=== PATIENT | male | born 1945 | race African-American/Black ===

== ENCOUNTER 2017-06-17 08:24 | Emergency (ER) | payer MEDICARE ==
--- NOTE | 2017-06-17 09:44 | ERNOTE ---
Lower Extremity HPI - General Lower Extremities Pain: knee: left Time Seen by Provider: 06/17/17 09:44 Source: patient Exam Limitations: no limitations - Immun/Allergies/Home Medications Immunizations: IMMUNIZATION HX Immunizations Up to Date Yes History of Influenza Vaccine No Hx Pneumococcal Vaccination No Allergies/Adverse Reactions: Allergies Allergy/AdvReac Type Severity Reaction Status Date / Time codeine Allergy Verified 06/17/17 08:38 Home Medications: HOME MEDICATIONS Lisinopril/Hydrochlorothiazide [Lisinopril-Hctz 20-12.5 mg Tab] 1 each PO BID [Last Taken 09/02/13 06:00] Metoprolol Tartrate [Lopressor] 50 mg PO BID 08/12/13 [Last Taken 09/02/13 06:00 ] Warfarin Sodium [Coumadin] 10 mg PO DAILY@1700 #0 tablet 09/05/13 [Last Taken Unknown] - History of Present Illness Narrative: PAtient has had pain in his right hip for a while and was told he needed a replacement. Now his left knee has been bothering him for a while. He denies any injury, has not taken any pain meds. He had a scope on that knee about eight years ago and would like to make sure that he does not have the same thing again Date (Duration): 06/17/17 Time (Timing): 09:44 Occurred: other Method of Injury: Reports: no apparent injury Associated Symptoms: Denies: unable to bear weight Other Injuries: Reports: none Subsequent Symptoms: Denies: sensory loss Prior Treament: Denies: recently seen Review of Systems - Review of Systems Constitutional: Absent: recent illness, fever ENT: Present: no symptoms reported Respiratory: Absent: shortness of breath Cardiology: Absent: chest pain Gastrointestinal/Abdominal: Absent: nausea, vomiting, abdominal pain Genitourinary: Present: no symptoms reported Musculoskeletal: Present: See HPI Skin: Absent: rash Neurological: Absent: headache, weakness, numbness - Patient's Past Medical History Patient History - Medical: No pertinent hx Patient History - Cardiac/Respiratory: Hypertension Patient History - Cancer: No Hx of Cancer Patient History - Surgical Procedures: Orthopedic, Urology Patient History - Other: None - Social History Abuse History: No History of abuse Psych History: No pertinent hx Smoking Status: Current every day smoker Have you smoked in the past 12 months: Yes Alcohol Use: none Drug Use: none - Immunizations Immunizations Up to Date: Yes Hx Pneumococcal Vaccination: No History of Influenza Vaccine: No Physical Exam - Physical Exam General Appearance: Present: wd/wn, alert, no apparent distress Respiratory: Present: no respiratory distress, lungs clear Cardiovascular/Chest: Present: regular rate, rhythm Extremity Exam: Present: normal except - - left knee: slight effusion, tender over lateral joint space, normal range of motion, limited ligament exam as patient is not relaxing Neurological Exam: Present: alert, oriented, normal mood/affect, no motor/ sensory deficits Skin Exam: Present: normal color, warm/dry ED Progress - Vital Signs Patient's Vital Signs:: I have reviewed the patient's vital signs. Vital Signs: Vital Signs 06/17/17 08:35 Temperature 36.8 C Pulse Rate 67 Respiratory 14 Rate Blood Pressure 117/75 O2 Sat by Pulse 99 Oximetry - X-Ray X-Ray #1 X-Ray: knee - arthritic changes, no fracture Interpretation: Reviewed by me - Progress/Reassessment Chief Complaint: Lower Extremity Pain/ Injury Departure Clinical Impression: Knee pain, left Qualifiers: Chronicity: acute Qualified Code(s): M25.562 - Pain in left knee - Departure Disposition: Home self-care Condition: Good Instructions: Knee Pain, [id number] Additional Instructions: take over the counter tylenol for pain and follow up with Dr Kemp if the pain persists Referrals: Gautam Kemp MD [Staff Physician] -
[2017-06-17 10:26] VITALS: BP 113/74
== END 2017-06-17 10:28 | disposition home or self-care (01) ==
LOC: ER 08:24
DX: I10 Essential (primary) hypertension; F17.200 Nicotine dependence, unspecified, uncomplicated; M25.562 Pain in left knee

== ENCOUNTER 2017-07-22 06:06 | Inpatient (IN) | payer MEDICARE ==
[~2017-07-22 06:06] MED LIST: MORPHINE SULFATE 15 MG TABLET.SA PO PRN; RINGER'S SOLUTION,LACTATED 1,000 ML IV PRN; ROPIVACAINE HCL/PF 100 MG, EPINEPHrine 0.2 MG, KETOROLAC TROMETHAMINE 30 MG in NORMAL S... IJ PRN; TRANEXAMIC ACID 1,000 MG in NORMAL SALINE 100 ML IV PRN; ceFAZolin SODIUM 1 GM VIAL IV PRN
[2017-07-22 07:17] LABS: Prothrombin Time (Patient) 11.1 Seconds (9.0-11.0)
[2017-07-22 07:18] LABS: INR 1.11 INR (0.90-1.10)
[2017-07-22] MEDS ORDERED: RINGER'S SOLUTION,LACTATED 1,000 ML IV ONE ×4 (07:45→09:40)
--- NOTE | 2017-07-22 09:47 | POSTOP NO ---
Date of Surgery: 07/22/17 Patient Tolerated the Procedure: Well Post Operative Diagnosis/Procedures: Rehabilitation Liaison: Oscar Johnson PA-C Post-operative Diagnosis: Right hip degenerative joint disease Finding: Above Procedure: Right total hip arthroplasty Estimated Blood Loss: 150 mL Specimens: Bone for disposal
[2017-07-22] MEDS ORDERED: diphenhydrAMINE HCL 50 MG/ML VIAL IV PRN (09:49)
[2017-07-22] MEDS ORDERED: ZOLPIDEM TARTRATE 5 MG TABLET PO PRN (09:49)
[2017-07-22] MEDS ORDERED: MAG HYDROX/ALUMINUM HYD/SIMETH 30 ML UDC PO PRN (09:49)
[2017-07-22] MEDS ORDERED: PROMETHAZINE HCL 5 MG in DEXTROSE 5 % IN WATER 50 ML IV PRN ×2 (09:49)
[2017-07-22] MEDS ORDERED: ACETAMINOPHEN 500 MG TABLET PO PRN (09:49)
[2017-07-22] MEDS ORDERED: HYDROmorphone HCL 2 MG/ML VIAL IV PRN (09:49)
--- NOTE | 2017-07-22 09:49 | OR ---
Operative Report - Dictated Report Narrative: Date: 07/22/2017 Preoperative diagnosis: Right hip degenerative joint disease. Postoperative diagnosis: Right hip degenerative joint disease. Procedure: Right Total hip arthroplasty. Surgeon: Gautam Kemp M.D. Lead Simulation Modeling Engineer: Oscar Johnson PA-C Anesthesia: Spinal and local periarticular joint injection. Complications: None Specimens: Bone for disposal. Estimated blood loss: 150 milliliters. Retained implants: Depuy [place] size 4 femoral stem high offset. Size 56 millimeter outside diameter 3-hole [place] Gription acetabular cup. 56 millimeter outside by 40 millimeter inside diameter highly cross-linked acetabular liner. 40 millimeter diameter +1 millimeter cobalt chromium femoral head. Cancellous 6.5mm screw 40 millimeter length Indications: Mr. Freitas is a 72-year-old gentleman who has had long-standing right hip pain and arthrosis. This patient was followed in my clinic for period of time with significant complaints of right hip pain consistent with arthritic changes. He failed conservative measures including but not limited to activity modification, passage of time, medications, and other conservative measures. Patient wished to proceed with surgical treatment. The risks, benefits, and alternatives were discussed in clinic. The risks of , blood clots, bleeding, infection, nerve/tendon blood vessel/ injury, malposition of components, dislocation and/or instability of joint, intraoperative fracture, postoperative limited range of motion, persistent pain, failure of components, and need for additional procedures. Patient wished to proceed. Consent was obtained after answering all questions. Procedure: After marking the correct extremity on the floor, the patient was taken to the operating room. A timeout was performed. IV antibiotics consisting of Ancef were administered prior to the procedure. A spinal anesthetic was induced by anesthesia. A Hernandez catheter was inserted. The patient was then transitioned to a lateral position on a well-padded pegboard. An axillary roll was placed. The head was in neutral position. The non- operative down leg was well-padded with SCD and TERRENCE hose in place. The arms were supported and padded to protect from any undue pressure on the bony prominences and nerves. A well-padded anterior and posterior pelvic and chest posts were secured in order to maintain a stable position of the pelvis. This was placed so that the pelvis was perpendicular to the floor. The body was in line with the pelvis. Once it was felt that we had protected all the bony prominences and the patient was well secured with a safety belt as well, the leg was pre-scrubbed with alcohol, prepped and draped in a standard sterile fashion. A standard anterior lateral hip incision was marked out over the greater trochanter. Ioban drapes were then placed. The skin incision was then made. Sharp dissection with a scalpel utilizing cautery for hemostasis was carried out down to the gluteus and iliotibial band fascia. This was split in line with the skin incision. The greater trochanter bursa was excised. The anterior and posterior margins of the abductor tendon were identified. The anterior 1/2-1/3 of the tendon was tagged and reflected off the greater trochanter leaving a sleeve of tendon for repair at the completion of the case. This exposed the underlying hip joint capsule. A limb length stitch was placed in the skin and referencedd off a ada on the greater trochanter for evaluation of intraoperative limb lengths. An inverted T-type capsulotomy was made extending this up to the brim of the acetabulum. Using Homans to assist with elevation of the soft tissues off the anterior, superior, and inferior aspects of the femoral neck, the hip was then placed in a figure 4 position and the femoral head was dislocated. With the leg in an externally rotated and adducted position, the cutting flag was utilized in order to ada for a standard femoral neck cut approximately a fingerbreadth above the level of the lesser trochanter. This was done with reference to pre-operative films and overall alignment. This was done while protecting the surrounding soft tissues with Homans. The femoral head was then removed and sized for guidance on preparation of the acetabulum. It was noted that there was loss of articular cartilage on both the femoral head and weightbearing portions of the acetabulum. We then returned the leg to the table and turned our attention to the acetabulum. While protecting the surrounding soft tissues, the labrum and remaining tissue in the fovea were excised using a scalpel and cautery. A series of reamers up to size 56 millimeter were utilized to prepare the acetabulum. The final reamer had good purchase and exposed the bleeding subchondral bone. The acetabulum was then thoroughly irrigated ensuring that all bony and cartilaginous materials were removed, and the final acetabular shell was impacted into place. This was placed in approximately 45 degrees of abduction and 20 degrees of anteversion utilizing the outrigger and body axis for alignment. This had a good press fit. 1 6.5mm cancellous screw was placed in the superior posterior quadrant of the acetabulum. The shell was then thoroughly irrigated and the final polyethylene was impacted into place ensuring that it seated completely. This was then protected with a sponge while we returned our attention to the femur. With the leg in a figure 4 position, utilizing Homans for soft tissue protection , a box cutting osteotome, followed by Charnley awl, followed by serial reamers and broaches were utilized in order to prepare the femur. It was found that a size 4 broach gave good axial and rotational stability. The calcar reamer was utilized in order to clean up the cut edges. The proximal femur was visualized to ensure that there were no signs of fracture. A series of heads and necks were trialed. It was found that a high offset neck and a + 1 femoral head gave good overall stability. There was minimal longitudinal instability. With the leg in the position of sleep, the femoral head was well covered. Hip range of motion was able to reach full extension and external rotation to greater than 75 degrees prior to impingement along the posterior acetabulum. The hip was able to be flexed to greater than 90 degrees with internal rotation greater than 60 degrees prior to anterior impingement. The limb lengths were near equal based on comparison to the contralateral side and the prior placed limb length stitch. At this point it was felt these were the appropriately sized femoral components as well as neck and femoral head. The trial implants were removed. The femur was thoroughly irrigated. The final implants were impacted into place, and the hip was reduced. After ensuring that there was no damage to the proximal femur , the standard periarticular joint injection of ropivacaine, Toradol, and epinephrine were injected into the joint capsule and surrounding soft tissues. Anesthesia then administered intravenous tranexamic acid. The capsule was repaired with a single interrupted #1 Vicryl. The abductor tendon was repaired to the greater trochanter utilizing #5 Ethibond through drill holes. This was oversewn with #1 Vicryl. The fascia was closed with interrupted #1 Vicryl. The wounds were thoroughly irrigated as we closed in layers. The deep and subcutaneous fat layers were closed with 0 and 3-0 Vicryl respectively. The subcutaneous tissue was closed with a running 3-0 Vicryl and the skin with running 3-0 Monocryl subcutaneous and Prineo Dermabond dressing. All sponge, needle, blade, and instrument counts were correct prior to closing the wounds. Sterile dressings consisting of 4 x 4's, and tape were applied. The patient was awoken and transferred to her hospital bed and then to the postanesthesia care unit in stable condition. Postoperative condition: The plan is to admit to the medical/surgical inpatient floor postoperatively. There will be a projected 1 to 3 day hospital stay. Postoperatively 24 hours of IV antibiotics, pain control, physical therapy, occupational therapy, and medical comanagement will be utilized. Patient will be weightbearing as tolerated with anterior hip precautions. Postoperative films will be obtained in the recovery room.
[2017-07-22] MEDS ORDERED: FLU VACC QS2017-18(6MOS UP)/PF 60 MCG/0.5 ML SYRINGE IM ONE (10:00)
[2017-07-22] MEDS: DEXTROSE 5%-LACTATED RINGERS 1,000 ML IV PRN ×3 (11:23→22:22)
[2017-07-22] MEDS: oxyCODONE HCL/ACETAMINOPHEN 1 TAB TABLET PO PRN ×3 (11:32→19:45)
[2017-07-22] MEDS: KETOROLAC TROMETHAMINE 15 MG/ML VIAL IV SCH ×3 (11:32→21:19)
[2017-07-22] MEDS: ceFAZolin SODIUM 1 GM in DEXTROSE 5 % IN WATER 50 ML IV SCH ×4 (11:32→16:51)
[2017-07-22] MEDS ORDERED: DEXTROSE 5%-LACTATED RINGERS 500 ML IV PRN (16:59)
[2017-07-22] MEDS ORDERED: WARFARIN SODIUM 7.5 MG TABLET PO SCH (17:00)
[2017-07-22] MEDS: ONDANSETRON HCL/PF 2 MG/ML VIAL IV PRN (18:30)
[2017-07-22] MEDS ORDERED: NON-FORMULARY 1 DOSE DOSE (Lisinopril/Hydrochlorothiazide [Lisinopril-Hctz 20-12.5 Mg Tab] PO SCH (21:00)
[2017-07-22] MEDS: METOPROLOL TARTRATE 50 MG TABLET PO SCH (21:17)
[2017-07-22] MEDS: MORPHINE SULFATE 15 MG TABLET.SA PO SCH (21:17)
[2017-07-22] MEDS: HYDROCHLOROTHIAZIDE 12.5 MG CAPSULE PO SCH (21:17)
[2017-07-22] MEDS: LISINOPRIL 20 MG TABLET PO SCH (21:18)
[2017-07-22] MEDS: SENNOSIDES/DOCUSATE SODIUM 1 TAB TABLET PO SCH (21:18)
[2017-07-22] MEDS ORDERED: BENZOCAINE/MENTHOL 16 EACH BOX MM PRN (23:42)
[2017-07-23] MEDS: ceFAZolin SODIUM 1 GM in DEXTROSE 5 % IN WATER 50 ML IV SCH ×2 (00:22)
[2017-07-23] MEDS: KETOROLAC TROMETHAMINE 15 MG/ML VIAL IV SCH (03:33)
[2017-07-23 06:11] LABS: Hematocrit 37.9 % (42.0-52.0); Hemoglobin 13.1 gm/dL (13.5-18.0); Mean Cell Volume 90.5 fl (78-100); Mean Corpuscular Hemoglobin 31.3 pg (27-31); Mean Corpuscular Hgb Conc 34.6 g/dl (32-36); Mean Platelet Volume 9.3 fl (6.0-9.5); Platelet Count 167 K/mm3 (150-450); Red Blood Count 4.19 M/mm3 (4.7-6.0); Red Cell Distribution Width 13.4 % (11.5-14.0); White Blood Count 5.4 K/mm3 (4.0-10.5)
[2017-07-23 06:19] LABS: Anion Gap 8.9 mmol/L (6.8-13.8); BUN/Creatinine Ratio 13.1 (9.0-21.6); Calcium * 8.1 mg/dL (7.9-10.9); Carbon Dioxide 28.6 mmol/L (24-32.6); Estimated Creat Clear 49.3; Potassium 3.5 mmol/L (3.4-4.6)
[2017-07-23 06:31] LABS: INR 1.1 INR (0.90-1.10)
[2017-07-23] MEDS: oxyCODONE HCL/ACETAMINOPHEN 1 TAB TABLET PO PRN ×2 (06:50→13:01)
--- NOTE | 2017-07-23 08:14 | PN ---
Subjective - Date and Time Seen Date: 07/23/17 Time: 08:09 Subjective Narrative: Patient reports nausea yesterday but none this am. Reports did well getting up to the chair for breakfast this am. Pain controlled. No lightheadedness. No complaints. Objective Objective Narrative: Bandages C/D/I. N/V intact PF/DF ankle. Dorsalis pedis pulse 2+. Calf supple. Anai's negative. Patient up in chair comfortable. - Vitals Vitals: Last Vital Signs Temp 36.8 C 07/23/17 07:41 Pulse 68 07/23/17 07:41 Resp 18 07/23/17 07:41 BP 139/79 07/23/17 07:41 Pulse Ox 95 07/23/17 07:41 - Abnormal Lab Findings Abnormal Lab Findings: Abnormal Lab Results 07/23/17 07/23/17 Range/Units 06:03 06:03 RBC 4.19 L (4.7-6.0) M/mm3 Hgb 13.1 L (13.5-18.0) gm/dL Hct 37.9 L (42.0-52.0) % MCH 31.3 H (27-31) pg Creatinine 1.60 H (0.4-1.4) mg/dL Est GFR (Non-Af Amer) 55 L (60-130) mL/min Random Glucose 120 H (70-110) mg/dL - Exam Constitutional: Present: Alert, Oriented x3, Cooperative, No distress Cauti Physician Documentation - Urinary Catheter Management 2-way Urethral Date of Insertion: 07/22/17 Time of Insertion: 08:15 Assessment/Plan - Problems/Diagnosis (1) Status post total hip replacement, right Problem: Acute Narrative: Pain control, anticoagulation, PT, will need wheeled walker for 6-8 weeks. (2) Acute blood loss anemia Problem: Acute Narrative: Asymptomatic (3) Hypertension Problem: Chronic
[2017-07-23] MEDS: ENOXAPARIN SODIUM 40 MG/0.4 ML SYRG SC SCH (08:21)
[2017-07-23] MEDS: METOPROLOL TARTRATE 50 MG TABLET PO SCH ×2 (08:21→20:17)
[2017-07-23] MEDS: HYDROCHLOROTHIAZIDE 12.5 MG CAPSULE PO SCH ×2 (08:22→20:18)
[2017-07-23] MEDS: LISINOPRIL 20 MG TABLET PO SCH ×2 (08:22→20:18)
[2017-07-23] MEDS: MORPHINE SULFATE 15 MG TABLET.SA PO SCH ×2 (08:32→20:18)
[2017-07-23] MEDS ORDERED: WARFARIN SODIUM 10 MG TABLET PO SCH (17:00)
[2017-07-23] MEDS: ONDANSETRON HCL/PF 2 MG/ML VIAL IV PRN (18:34)
[2017-07-23] MEDS: MAGNESIUM HYDROXIDE 30 ML UDC PO PRN (18:39)
[2017-07-23] MEDS: SENNOSIDES/DOCUSATE SODIUM 1 TAB TABLET PO SCH (20:18)
[2017-07-24] MEDS: oxyCODONE HCL/ACETAMINOPHEN 1 TAB TABLET PO PRN (00:31)
[2017-07-24 06:17] LABS: Prothrombin Time (Patient) 11.4 Seconds (9.0-11.0)
[2017-07-24 06:29] LABS: INR 1.14 INR (0.90-1.10)
[2017-07-24 06:43] VITALS: BP 143/64
[2017-07-24] MEDS: HYDROCHLOROTHIAZIDE 12.5 MG CAPSULE PO SCH (09:29)
[2017-07-24] MEDS: ENOXAPARIN SODIUM 40 MG/0.4 ML SYRG SC SCH (09:29)
[2017-07-24] MEDS: MAGNESIUM HYDROXIDE 30 ML UDC PO PRN (09:29)
[2017-07-24] MEDS: METOPROLOL TARTRATE 50 MG TABLET PO SCH (09:29)
[2017-07-24] MEDS: LISINOPRIL 20 MG TABLET PO SCH (09:29)
[2017-07-24] MEDS: MORPHINE SULFATE 15 MG TABLET.SA PO SCH (09:35)
--- NOTE | 2017-07-24 10:11 | DS ---
(1) History of pulmonary embolus (PE) Problem: Chronic (2) Chronic anticoagulation Problem: Chronic (3) Anxiety Problem: Chronic (4) Acute blood loss anemia Problem: Acute (5) Status post total hip replacement, right Problem: Acute (6) Hypertension Problem: Chronic Description of Stay: Mr. Freitas was admitted to the floor after undergoing right total hip arthroplasty. Tolerated this well. Was admitted to the floor postoperatively for 24 hours of IV antibiotics, pain control, medical comanagement, and occupational and physical therapy. OT and PT were consulted to assist with activities of daily living and ambulation. Was made weightbearing as tolerated with anterior hip precautions motion as tolerated. Pain was initially controlled with IV regimen. This was transitioned to oral once tolerating a by mouth intake. Was resumed on home diet and medications. Had a Hernandez catheter inserted and the operating room which was discontinued on postoperative day 1. He was resumed on his home Coumadin as well as Lovenox SCD and TERRENCE hose were utilized for DVT prophylaxis. Vital signs remained stable to the hospital course. Serial labs were obtained which showed a final hemoglobin of 13.1 grams. BMP was reviewed and was stable. His INR was increasing but not therapeutic of time and discharge. Physical examination throughout the hospital course showed an extremity that had sensation that was intact to light touch, palpable pulses, a benign wound, motor intact to the toes, ankle, and knee. Once an oral pain regimen was tolerated and physical therapy goals were met, it was felt that they were stable for discharge to home. Instructions: Continue with weightbearing as tolerated and anterior hip precautions with no active abduction. He will repeat an INR on Thursday and send results to Dr. Austin. It is okay to shower and get the wound wet as long as there is no drainage from the wound. Do not bathe or soak the wound. If there is any drainage from the wound keep the wound clean and dry and cover with dry gauze and tape. Change every 2-3 days as needed if there is any drainage. Cover wound while showering if there is any drainage. Continue with physical therapy. Resume home diet. Report any fever over 101.5 Fahrenheit, uncontrolled pain, increased drainage, foul odor of drainage, new or increased calf pain or shortness of breath, or any other significant complaints. A 325mg dialy aspirin will be started after finishing anticoagulation if not allergic. Continue with TERRENCE hose on the operative extremity until instructed otherwise. No driving until instructed otherwise. Follow up in approximately 10-14 days. Procedures Performed: see notes below List Procedures: Right total hip arthroplasty Discharge Disposition: Home self care Disposition: Home self-care Condition: Good Discharge Activity: Weight bearing, Other - anterior hip precautions with no active abduction Discharge Diet: General/regular food Shelter Therapy: Physicial Therapy Referrals: Guillermo Brown MD [Primary Care Provider] - Additional Patient Instructions (free text): Physical Therapy at [facility] [place] outpatient rehab on Thursday 07/27 at 9:15am. Follow up Orthopedic appointment with Dr Kemp on August 06 at 9:45 am. Prescriptions (Any new or edited meds): Enoxaparin Sodium [Lovenox] 40 mg SC Q24H #3 disp.syrin Morphine Sulfate [Ms Contin] 15 mg PO Q12H #20 tablet.sa oxyCODONE HCL/ACETAMINOPHEN [Percocet 5 MG/325 MG] 2 tab PO Q4H PRN #90 tablet PRN Reason: Moderate Pain (Pain Scale 4-6) Complete Home Medications List: Complete Home Medication List: Lisinopril/Hydrochlorothiazide [Lisinopril-Hctz 20-12.5 mg Tab] 1 each PO BID Metoprolol Tartrate [Lopressor] 50 mg PO BID 08/12/13 Warfarin Sodium [Coumadin] 7.5 mg PO MOWEFR 07/03/17 Warfarin Sodium [Coumadin] 10 mg PO SUTUTHSA 07/03/17 Enoxaparin Sodium [Lovenox] 40 mg SC Q24H #3 disp.syrin 07/24/17 Morphine Sulfate [Ms Contin] 15 mg PO Q12H #20 tablet.sa 07/24/17 Sennosides/Docusate Sodium [Senokot-S] 2 tab PO HS tablet 07/24/17 oxyCODONE HCL/ACETAMINOPHEN [Percocet 5 MG/325 MG] 2 tab PO Q4H PRN #90 tablet 07/24/17 Amb Orders for Discharge: Prothrombin Time Time Frame: 07/27/17, Facility: [facility], Location: Laboratory PT Evaluation and Treatment Facility: [facility], Location: Rehabilitation Services
== END 2017-07-24 11:49 | disposition home or self-care (01) | DRG 470 ==
LOC: MS 06:06 → OBSVTOIN 06:06 → INTOOBSV 06:06 → UNDOADMIN 06:06 → MS 12:49 → UNDOADMIN 07-23 12:49 → MS 07-23 12:49
PROVIDERS: ADMIT Orthopaedic Surgery; ATTEND Orthopaedic Surgery
PROC: 0SR90JZ Replacement of Right Hip Joint with Synthetic Substitute, Open Approach (ICD-10-PCS; principal; 2017-07-22)
DX: M16.11 Unilateral primary osteoarthritis, right hip (principal); D62 Acute posthemorrhagic anemia; I10 Essential (primary) hypertension; F17.210 Nicotine dependence, cigarettes, uncomplicated; Z79.01 Long term (current) use of anticoagulants; Z86.711 Personal history of pulmonary embolism; Z88.6 Allergy status to analgesic agent
CPT/HCPCS: 27130; 36415; 73502; 80048; 85027; 85610; 97110; 97116; 97162; 97166; 97530; 97535; J2405